=== PATIENT | female | born 2000 | race Caucasian/White ===

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

== ENCOUNTER 2019-04-22 07:56 | Emergency (ER) | payer MEDICAID ==
[~2019-04-22] VITALS: Ht 160 cm; Wt 59.9 kg
--- NOTE | 2019-04-22 08:00 | NUR ---
Patient ambulated to bed 5. RN evaluating patient at bedside.
[2019-04-22 08:04] VITALS: BP 108/60
--- NOTE | 2019-04-22 08:08 | NUR ---
URINE CUP HANDED TO PT FOR SAMPLE
--- NOTE | 2019-04-22 08:38 | NUR ---
Dr. Riley is evaluating the patient at bedside.
[2019-04-22] MEDS ORDERED: KETOROLAC 60 MG/2 ML VIAL IM ONE (08:45)
--- NOTE | 2019-04-22 09:24 | NUR ---
US tech at bedside for exam.
--- NOTE | 2019-04-22 13:43 | NUR ---
CBC DRAWN FROM [facility] AND SENT TO LAB WITH CANDIS (INSURANCE REPRESENTATIVE)
[2019-04-22 13:56] LABS: BASOPHILS % (AUTO) 0.2 % (0.0-2.0); EOSINOPHILS # (AUTO) 0.1 K/uL (0-0.4); EOSINOPHILS % (AUTO) 0.9 % (0.0-4.0); HEMOGLOBIN 13.7 g/dL (12.0-16.0); LYMPHOCYTES # (AUTO) 2.5 K/uL (2.5-16.5); LYMPHOCYTES % (AUTO) 33.9 % (20.5-51.1); MEAN CORPUSCULAR HEMOGLOBIN 30 pg (27-31); MEAN CORPUSCULAR HGB CONC 33 g/dL (33-37); MEAN CORPUSCULAR VOLUME 90.5 fL (80-94); MONOCYTES # (AUTO) 0.4 K/uL (0.8-1.0); NEUTROPHILS # (AUTO) 4.4 K/uL (1.8-7.7); PLATELET COUNT (AUTO) 286 K/uL (140-450); RED BLOOD CELL COUNT(AUTO) 4.64 MIL/uL (4.20-5.40); RED CELL DISTRIBUTION WIDTH 12.9 % (11.6-13.7); WHITE BLOOD COUNT (AUTO) 7.2 K/uL (4.5-11.0)
[2019-04-22 14:12] VITALS: BP 94/57
--- NOTE | 2019-04-22 14:12 | NUR ---
Patient discharged with v/s stable. Written and verbal after care instructions given and explained. Patient alert, oriented and verbalized understanding of instructions. Ambulatory with steady gait. All questions addressed prior to discharge. ID band removed. Patient advised to follow up with PMD. Rx of MINERAL OIL, AND MIRALAX given. Patient educated on indication of medication including possible reaction and side effects. Opportunity to ask questions provided and answered.
== END 2019-04-22 14:12 | disposition home or self-care (01) ==
LOC: MED 07:56
DX: R10.2 Pelvic and perineal pain (principal); R19.7 Diarrhea, unspecified; R11.0 Nausea
CPT/HCPCS: 36415; 74018; 76856; 81002; 81025; 85025; 96372; 99284; J1885; Q0092

== ENCOUNTER 2023-12-13 20:57 | Emergency (ER) | payer OTHER ==
[~2023-12-13] VITALS: Ht 162.6 cm; Wt 74.4 kg
[2023-12-13 21:20] VITALS: BP 123/79; PULSE 63; RESP 16; TEMP 98; O2SAT 100
[2023-12-13] MEDS ORDERED: IBUPROFEN 600 MG TAB PO ONE (22:00)
[2023-12-13] MEDS: ONDANSETRON 4 MG ODT PO ONE (22:11)
[2023-12-13] MEDS: CYCLOBENZAPRINE 10 MG TAB PO ONE (22:13)
[2023-12-13] MEDS: ACETAMINOPHEN EXTRA STRENGTH 500 MG TAB PO ONE (22:14)
[2023-12-13 22:17] VITALS: TEMP 98.5
[2023-12-13] MEDS ORDERED: IBUP-1842 PO (22:57)
[2023-12-13] MEDS ORDERED: ACET500T99 PO (22:57)
[2023-12-13] MEDS ORDERED: ONDA-188 PO (22:57)
[2023-12-13 23:26] VITALS: BP 94/57; PULSE 58; RESP 16; O2SAT 100
== END 2023-12-13 23:20 | disposition home or self-care (01) ==
LOC: MED 20:57
DX: S09.90XA Unspecified injury of head, initial encounter (principal); M54.2 Cervicalgia; Z79.899 Other long term (current) drug therapy; V49.9XXA Car occupant (driver) (passenger) injured in unspecified traffic accident, initial encounter; Y93.89 Activity, other specified; Y92.410 Unspecified street and highway as the place of occurrence of the external cause; Y99.8 Other external cause status
CPT/HCPCS: 99284; Q0162